=== PATIENT | female | born 1985 | race Caucasian/White ===

== ENCOUNTER 2023-10-03 19:45 | Emergency (ER) | payer MEDICAID ==
[~2023-10-03] VITALS: Ht 157.5 cm; Wt 54.4 kg
[2023-10-03 20:00] VITALS: BP_SYST 107; PULSE 79; RESP 18; TEMP 98.2; O2SAT 98
[2023-10-03 20:15] VITALS: O2SAT 72
[2023-10-03] MEDS ORDERED: ACYC400T19 PO (20:24)
[2023-10-03] MEDS ORDERED: HYDR-3917 PO (20:24)
[2023-10-03 20:40] VITALS: BP_SYST 107; PULSE 74; RESP 18
== END 2023-10-03 20:30 | disposition home or self-care (01) ==
LOC: SED 19:45
DX: B02.9 Zoster without complications (principal); M54.2 Cervicalgia; M25.511 Pain in right shoulder; Z79.899 Other long term (current) drug therapy
CPT/HCPCS: 99283